=== PATIENT | female | born 1945 | race Caucasian/White ===

== ENCOUNTER → 2019-01-03 | Outpatient (CLI) | payer MEDICARE, BC ==
[2019-01-03 08:44] LABS: HEMOGLOBIN A1C 7.5 % (< 5.7)
== END ==
LOC: LB.CLINIC 08:04
PROVIDERS: ATTEND Family Medicine
DX: E11.9 Type 2 diabetes mellitus without complications (principal)
CPT/HCPCS: 36415; 83036

== ENCOUNTER → 2019-01-03 | Outpatient (CLI) | payer MEDICARE, BC | LOC: LB.CLINIC 08:10 | PROVIDERS: ATTEND Nurse Practitioner Family | DX: I10 Essential (primary) hypertension (principal); E11.9 Type 2 diabetes mellitus without complications | CPT/HCPCS: 36415; 80053; 83036 ==

== ENCOUNTER 2021-10-08 09:36 | Emergency (ER) | payer MEDICARE, BC ==
[2021-10-08] MEDS ORDERED: Magnesium Sulfate/Water 2 GM in Premix Bag 1 BAG IV ONE (10:59)
[2021-10-08] MEDS: Sodium Chloride 0.9% 1,000 ML IV ONE ×2 (11:00→15:00)
[2021-10-08 11:25] LABS: ESTIMATED GFR 6 mL/min (>60); TROPONIN I HIGH SENSITIVITY 12.2 pg/ml (<=60.4)
[2021-10-08 11:26] VITALS: BP 129/55; PULSE 74
[2021-10-08] MEDS ORDERED: Magnesium Sulfate/Water 50 ML ONE (13:04)
[2021-10-08] MEDS ORDERED: Piperacillin/Tazobactam 3.375 GM in Sodium Chloride 0.9% 100 ML IV SCH (14:15)
[2021-10-08 16:22] LABS: ESTIMATED GFR 7 mL/min (>60)
== END 2021-10-08 17:50 ==
LOC: LB.ED 09:36
DX: A41.9 Sepsis, unspecified organism (principal); R65.20 Severe sepsis without septic shock; N17.9 Acute kidney failure, unspecified; I10 Essential (primary) hypertension; Z88.2 Allergy status to sulfonamides; Z79.899 Other long term (current) drug therapy; Z79.82 Long term (current) use of aspirin; Z20.822 Contact with and (suspected) exposure to COVID-19
CPT/HCPCS: 36415; 71045; 71250; 74176; 80048; 80053; 81001; 82803; 82947; 83605; 83735; 83880; 84484; 85025; 93005; 96365; 96366; 96368; 99285-25; A0425; A0429; J2543; J3475; J7030; U0002